=== PATIENT | male | born 1985 | race Caucasian/White ===

== ENCOUNTER 2020-08-21 03:03 | Emergency (ER) | payer OTHER ==
[~2020-08-21] VITALS: Ht 177.8 cm; Wt 113.4 kg
[2020-08-21 03:13] VITALS: BP 146/94
[2020-08-21] MEDS ORDERED: WELLBUTRIN 100100 MG PO (03:15)
[2020-08-21] MEDS ORDERED: ERYTHROMYCIN E3.5 G3 OPHTHALMIC (03:34)
[2020-08-21] MEDS ORDERED: HYDROCODON-ACE1 EAC8 PO (03:34)
== END 2020-08-21 03:41 | disposition home or self-care (01) ==
LOC: M.ERS 03:03
DX: H16.133 Photokeratitis, bilateral (principal); I10 Essential (primary) hypertension